=== PATIENT | male | born 1990 | race Caucasian/White ===

== ENCOUNTER 2017-07-02 08:10 | Emergency (ER) | payer BC ==
[2017-07-02] MEDS ORDERED: CYCLOBENZAPRINE HCL 10 MG TABLET PO ONE (08:27)
[2017-07-02] MEDS ORDERED: KETOROLAC TROMETHAMINE 60 MG/2 ML VIAL IM ONE ×2 (08:27→08:37)
--- NOTE | 2017-07-02 08:30 | ERNOTE ---
Back Pain ER HPI Presenting Symptoms: other Time Seen by Provider: 07/02/17 08:18 Source: patient Exam Limitations: no limitations Immunizations: IMMUNIZATION HX Immunizations Up to Date No History of Influenza Vaccine No Allergies/Adverse Reactions: Allergies No Known Allergies Allergy (Verified 07/02/17 08:23) Home Medications: HOME MEDICATIONS Cyclobenzaprine HCl [Flexeril] 10 mg PO TID PRN #30 tab 07/02/17 [Last Taken Unknown] Ibuprofen [Motrin] 600 mg PO Q6H PRN #40 tab 07/02/17 [Last Taken Unknown] Narrative: Patient is here for neck pain that started yesterday morning. He denies any injury, had no symptoms when getting up in the morning but than started to have slowly increasing pain in the lower part of his neck, currently rates it as 03/11 , took tylenol with minimal relieve, no numbness or weakness. It feels better to have his head bend down forward Date (Duration): 07/01/17 Timing: Reports: constant Quality/Severity: Reports: moderate Location of pain: Reports: no radiation Activities at Onset: Reports: none Recent Injury?: Reports: no Modifying Factors - (Improves): Reports: nothing Modifying Factors - (Worsens): Reports: movement flexion Associated Symptoms: Denies: fever/chills, problems urinating, numbess/weakness in legs Prior Treament: Denies: recently seen, similar symptoms before Review of Systems - Review of Systems Constitutional: Absent: recent illness, fever EYE: Absent: vision changes ENT: Absent: nose congestion, sore throat Respiratory: Absent: shortness of breath Cardiology: Absent: chest pain Gastrointestinal/Abdominal: Absent: nausea, vomiting, abdominal pain Genitourinary: Present: no symptoms reported Musculoskeletal: Present: See HPI Neurological: Absent: weakness, numbness - Patient's Past Medical History Patient History - Medical: No pertinent hx Patient History - Cardiac/Respiratory: No pertinent hx Patient History - Cancer: No Hx of Cancer Patient History - Surgical Procedures: Other - Social History Living Situations: home Smoking Status: Current every day smoker Have you smoked in the past 12 months: Yes - Immunizations Immunizations Up to Date: No Hx Pneumococcal Vaccination: No History of Influenza Vaccine: No Physical Exam - Physical Exam General Appearance: Present: wd/wn, alert, no apparent distress Head Exam: Present: normal inspection, no evidence of injury Eye Exam: Normal inspection: bilateral Neck: Present: limited range of motion, tender posterior midline - diffusely tender around C7, other - patient is holding head bend forward, resists movement as it causes pain Respiratory: Present: no respiratory distress, normal breath sounds, lungs clear Cardiovascular/Chest: Present: regular rate, rhythm, no murmur Neurological Exam: Present: alert, oriented, normal mood/affect, no motor/ sensory deficits Skin Exam: Present: normal color, warm/dry ED Progress - Vital Signs Patient's Vital Signs:: I have reviewed the patient's vital signs. Vital Signs: Vital Signs 07/02/17 08:20 Temperature 36.5 C Pulse Rate 73 Respiratory 14 Rate Blood Pressure 129/90 O2 Sat by Pulse 97 Oximetry - Progress/Reassessment Chief Complaint: Neck Pain/Injury Progress Note-Subjective: 07/02/17 09:45 pain much better after toradol and flexeril, full range of motion in neck Departure Clinical Impression: Neck pain, musculoskeletal - Departure Disposition: Home self-care Condition: Good Instructions: Musculoskeletal Pain, Form - Excuse from Work, School, or Physical Activity Referrals: Antoine Crespo MD [Staff Physician] - Prescriptions: Cyclobenzaprine HCl [Flexeril] 10 mg PO TID PRN #30 tab PRN Reason: MUSCLE SPASMS Ibuprofen [Motrin] 600 mg PO Q6H PRN #40 tab PRN Reason: Pain
[2017-07-02] MEDS ORDERED: CYCLOBENZAPRINE HCL 10 MG TABLET ONE (08:37)
[2017-07-02 09:50] VITALS: BP 116/81
== END 2017-07-02 09:51 | disposition home or self-care (01) ==
LOC: ER 08:10
DX: M54.2 Cervicalgia (principal); F17.200 Nicotine dependence, unspecified, uncomplicated